=== PATIENT | female | born 1955 | race Hispanic/Latino ===

== ENCOUNTER 2020-06-18 11:44 | Outpatient (CLI) | payer OTHER, MEDICARE | END 2020-06-18 20:44 | disposition home or self-care (01) | LOC: RAD 11:44 | PROVIDERS: ATTEND Internal Medicine | DX: Z78.0 Asymptomatic menopausal state (principal); Z13.820 Encounter for screening for osteoporosis ==

== ENCOUNTER 2022-02-25 09:03 | Outpatient (CLI) | payer OTHER, MEDICARE | END 2022-02-25 19:40 | disposition home or self-care (01) | LOC: CT 09:03 | PROVIDERS: ATTEND Internal Medicine | DX: R91.1 Solitary pulmonary nodule (principal) | CPT/HCPCS: 36415; 82565; 84520; Q9963 ==

== ENCOUNTER 2022-08-10 09:59 | Outpatient (CLI) | payer OTHER, MEDICARE | END 2022-08-10 20:34 | disposition home or self-care (01) | LOC: RAD 09:59 | PROVIDERS: ATTEND Internal Medicine | DX: Z13.820 Encounter for screening for osteoporosis (principal); N95.8 Other specified menopausal and perimenopausal disorders ==

== ENCOUNTER 2023-03-10 16:04 | Outpatient (CLI) | payer OTHER, MEDICARE | END 2023-03-10 19:00 | disposition home or self-care (01) | LOC: CT 16:04 | PROVIDERS: ATTEND Internal Medicine | DX: R42 Dizziness and giddiness (principal); H53.8 Other visual disturbances; M54.2 Cervicalgia; I10 Essential (primary) hypertension; R53.83 Other fatigue | CPT/HCPCS: 93005 ==

== ENCOUNTER 2023-03-14 10:30 | Outpatient (CLI) | payer OTHER, MEDICARE | END 2023-03-14 21:23 | disposition home or self-care (01) | LOC: US 10:30 | PROVIDERS: ATTEND Nurse Practitioner Family | DX: R42 Dizziness and giddiness (principal); H53.8 Other visual disturbances; I10 Essential (primary) hypertension; R53.83 Other fatigue; Z84.89 Family history of other specified conditions ==

== ENCOUNTER 2023-04-06 12:19 | Outpatient (CLI) | payer OTHER, MEDICARE | END 2023-04-06 19:06 | disposition home or self-care (01) | LOC: MRI 12:19 | PROVIDERS: ATTEND Internal Medicine | DX: R51.9 Headache, unspecified (principal); R42 Dizziness and giddiness; I67.82 Cerebral ischemia | CPT/HCPCS: 36415; 82565; 84520; A9576 ==